=== PATIENT | female | born 1985 | race Caucasian/White ===

== ENCOUNTER 2017-06-19 16:29 | Emergency (ER) | payer OTHER ==
[2017-06-19 16:40] VITALS: BP 117/57; PULSE 78; RESP 20; TEMP 98.1
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
== END 2017-06-19 17:12 | disposition home or self-care (01) ==
LOC: EC 16:29
DX: T65.91XA Toxic effect of unspecified substance, accidental (unintentional), initial encounter (principal); T20.57XA Corrosion of first degree of neck, initial encounter; T32.0 Corrosions involving less than 10% of body surface; H66.91 Otitis media, unspecified, right ear; F17.200 Nicotine dependence, unspecified, uncomplicated; Z88.0 Allergy status to penicillin; Z88.2 Allergy status to sulfonamides
CPT/HCPCS: 99283